=== PATIENT | male | born 1960 | race Caucasian/White ===

== ENCOUNTER 2024-05-12 09:48 | Emergency (ER) | payer OTHER, SELFPAY ==
[2024-05-12 10:28] VITALS: BP 136/64; PULSE 55; RESP 20; TEMP 36.8; O2SAT 98
--- NOTE | 2024-05-12 16:50 | ED.EAR ---
HPI - Ear Problem General Chief complaint: Ear Stated complaint: rt ear pain and discomfort Time Seen by Provider: 05/12/24 10:35 Source: patient, RN notes reviewed and old records reviewed Mode of arrival: ambulatory Limitations: no limitations History of Present Illness HPI Narrative: 63-year-old male to [facility] complaint of swelling behind right ear. Patient states that on Thursday he noticed what he thought was a pimple and attempted to squeeze it. Patient states increasing redness, swelling over the past several days and pain radiating down into right neck. Patient resting comfortably in exam room in no acute distress. Related Data Allergies Allergy/AdvReac Type Severity Reaction Status Date / Time No Known Allergies Allergy Verified 05/12/24 10:37 Review of Systems Review of Systems: All systems reviewed & are unremarkable except as noted in HPI and below Constitutional: Constitutional: Reports no additional constitutional complaints Eyes: Eyes: Reports no additional eye complaints ENT: Reports as per HPI and Reports otalgia ( Right posterior) Cardiovascular: Cardiovascular: Reports no additional cardiovascular complaints, Denies chest pain and Denies dyspnea Respiratory: Respiratory: Reports no additional respiratory complaints, Denies cough and Denies dyspnea Musculoskeletal: Musculoskeletal: Reports no additional musculoskeletal complaints Neurologic: Reports system reviewed and no additional complaints, except as documented Psychiatric: Psychiatric: Reports no additional psychiatric complaints PMFSH Comments At the time of my signature, I reviewed and agree with the nursing past medical, surgical, social, and family history. There is no relevant family history pertinent to the patient complaint. Exam Const: General: cooperative, no acute distress, alert, uncomfortable and well nourished Nutritional Appearance: well nourished Orientation/consciousness: patient oriented x3 Limitations: no limitations HENMT: Head: normal to inspection Ears: external ear abnormal pain with movement of external ear on the right Face/Nose/Sinus: Normal external nose present, Normal nares present, normal facial exam, No erythema and No edema Face and sinus: normal facial exam, no erythema and no edema Mouth: Yes Normal oral and palatal mucosa present Eyes: General: appearance normal, both eyes and all related structures Neck: Neck: normal visual inspection, full ROM and no meningeal signs Lymphatic: no lymphadenopathy noted and no lymphedema noted Chest: Chest palpation & inspection: normal inspection of the chest Resp: Effort & Inspection: normal respiratory effort and able to speak in complete sentences Auscultation: clear to auscultation bilaterally Cardio: Jugular venous distension: no JVD Rate: regular rate Rhythm: regular rhythm Back/Spine/Pelvis: Cervical Spine: cervical ROM normal Skin: General skin exam: normal color, erythema and other ( abscess posterior right earlobe) Other: 1.5 cm round, erythematous, swollen, fluctuant abscess. Warm, acutely tender to touch. Neuro: General: patient oriented x3, gait normal, moves all extremities and no meningeal signs Speech: normal speech Gait exam (Neuro): Normal gait present Extrem: General: normal to inspection, full ROM and capillary refill normal Psych: Appearance: grossly normal and well kempt Course Course Emergency Course: Some parts of this dictation were generated by voice recognition software and may contain typographical and/or grammatical inaccuracies. Level of Care: [facility] Visit Vital Signs Vital signs: Vital Signs Temperature 36.8 C 05/12/24 10:28 Pulse Rate 55 L 05/12/24 10:28 Respiratory Rate 20 05/12/24 10:28 Blood Pressure 136/64 05/12/24 10:28 Pulse Oximetry 98 05/12/24 10:28 Oxygen Delivery Room Air 05/12/24 10:28 Temperature 36.8 C 05/12/24 10:28 Pulse Rate 55 L 05/12/24 10:28 Res
== END 2024-05-12 11:09 | disposition home or self-care (01) ==
PROVIDERS: Emergency Provider Nurse Practitioner Family
DX: H60.01 Abscess of right external ear (principal)
CPT/HCPCS: 69000; 87070; 87075; 87205; 99203; G0463